=== PATIENT | male | born 1995 | race Caucasian/White ===

== ENCOUNTER 2024-12-06 21:03 | Emergency (ER) | payer SELFPAY ==
[2024-12-06 21:06] VITALS: BP 133/85; PULSE 75; RESP 18; TEMP 36.6; O2SAT 99; BMI 20.8
[2024-12-06 21:08] VITALS: BP 133/85; PULSE 75; RESP 18; TEMP 36.6; O2SAT 99
--- NOTE | 2024-12-06 22:29 | EDS_ITS ---
HPI History of Present Illness Chief Complaint: Cellulitis Informant: patient Onset/Context/Timing Onset: Month(s) Context: Gradual Onset Timing: Continuous Current Severity: Mild Maximum Severity: Mild Narrative Narrative: Healthy 29-year-old male left great ingrown toenail for 2 months. No other complaints. He has been trying take care of at home but progressively getting worse. Prior similar symptoms: No Recent Illness/Hospitalization: No PFSH PFSH Medical History no medical history no medical history Home Medications ?Medication ?Instructions ?Recorded ?Last Taken ?Type cephalexin 500 mg capsule 500 mg PO Q8H 5 days #15 cap s 12/06/24 Unknown Rx Allergy/AdvReac Type Severity Reaction Status Date / Time No Known Allergies Allergy Verified 12/06/24 21:05 Surgical History no surgical history no surgical history Social History Smoking Status: Current every day smoker tobacco type: e-cigarettes ROS ROS ED ROS Narrative Denies recent illness other than redness and swelling and pain to his left great toe Constitutional Constitutional ED: Denies chills or fever(s) Eyes Eyes: Denies blurry vision ENT ENT ED: Denies ear pain Cardiovascular Cardiovascular: Denies chest pain Respiratory/Chest Respiratory/Chest: Denies cough Gastrointestinal Gastrointestinal: Denies abdominal pain Genitourinary Genitourinary ED: Denies dysuria Musculoskeletal Musculoskeletal: Denies arthralgias Integumentary Denies abscess Neurologic Neurologic: Denies headache(s) Psychiatric Psychiatric: Denies anxiety Endocrine Endocrinology: Denies cold intolerance Hematologic/Lymphatic Hematologic/Lymphatic: Reports none Allergic/Immunologic Allergic/Immunologic ED: Denies mouth swelling, tongue swelling or urticaria EXAM Physical Exam Narrative Exam Narrative: 29-year-old male sitting upright in bed vital signs stable afebrile. No acute distress. HEENT exam normal. Lungs clear. Heart regular rhythm no murmur. Abdomen soft. Moving all 4 extremities. Neurovascular intact. Left great toenail lateral side is ingrown red, swollen and tender. No pus. No abscess. No lymphangitic streaking. No inguinal lymphadenopathy. Foot neurovascularly intact. Const Vital Signs: 12/06/24 21:06 12/06/24 21:08 Temperature 97.9 F 97.9 F Temperature Source Oral Oral Pulse Rate 75 75 Respiratory Rate 18 18 Blood Pressure 133/85 H 133/85 H Blood Pressure Mean 101 101 Pulse Ox 99 99 Oxygen Delivery Method Room Air Room Air Positive well nourished and well developed; Negative for cachectic, contractures or unkempt General Appearance ED: well developed and NAD; Negative for unkempt, cachectic, contractures, cyanotic, diaphoretic or pallor Nutritional Appearance: Negative for cachectic HEENT Reports moist mucous membranes Eyes PERRL and EOMs intact bilaterally Neck no lymphadenopathy, supple and no JVD Chest Wall inspection of chest normal and palpation of chest normal Resp normal respiratory effort and clear to auscultation bilaterally Cardio regular rate, regular rhythm, S1 normal heart sound, S2 normal heart sound and no murmurs GI normal to inspection, nondistended, normoactive bowel sounds, non-tender, non- distended and no masses Palpation: soft; Negative for tender or guarding Back/Spine no CVA tenderness Extremity normal to inspection Extremity Narrative: Except left great toenail lateral side ingrown. Tender, red and swollen. No lymphangitic streaking. No abscess. No pus. Consistent with ingrown nail. Neuro oriented x3, CN's II-XII intact bilaterally and no sensory deficits noted Psych mental status grossly normal Appearance: Negative for unkempt Skin no rashes or lesions noted, no wounds and skin turgor normal General Skin Exam: elasticity normal; Negative for jaundice or pallor MDM MDM MDM Narrative Medical decision making narrative: 29-year-old male has an ingrown left great toenail. We discussed treatment plan. Area was locally anesthetized with digital block. I will undermine the nail and remove the lateral third. He will be given a Keflex start Keflex for several days due to the soft tissue infection. History & Record Review Discussion w/independent historian: Patient Additional record(s) reviewed:: No prior records Procedures Other Procedures Procedure(s): Ingrown left great toenail partial resection. Area was cleaned using Shur-Clens. Washed with saline. I used Freezone spray to help get local anesthetic. Then locally anesthetized the area with a digital great toe block using lidocaine. Patient was very nervous we discussed the procedure he was able to calm himself and we removed the lateral third of the nail he tolerated it well. He was instructed on wound care and outpatient follow-up as needed. Discharge Plan Triage Chief Complaint: Cellulitis ED Provider: Geovanny Raphael Dx/Rx/DC Orders Clinical Impression: Ingrown toenail of left foot with infection Instructions: ED Ingrown Toenail, Excised Prescriptions: New cephalexin 500 mg capsule 500 mg PO Q8H 5 Days Qty: 15 0RF Primary Care Provider: Lory Nicole Referrals: Vladislav Prescott DPM [Med Staff - Active Staff] - 1 Week if not improving Activity Restrictions/Additional Instructions: Motrin Tylenol for pain. Return if worse or follow-up with podiatry. The antibiotic 1 pill 3 times a day for 5 days. This should progressively get better if not follow-up with the fire range technician. Print Language: Egyptian Disposition Disposition: Home, Self Care
[2024-12-06] MEDS: Lidocaine 1% (20 ml mdv) 20 ML Vial 10 ML INFILT (22:38)
[2024-12-06 23:59] VITALS: BP 128/84; PULSE 81; RESP 18; TEMP 36.6; O2SAT 99
== END 2024-12-07 00:01 | disposition home or self-care (01) ==
PROVIDERS: Emergency Provider Emergency Medicine; PCP Nurse Practitioner Family; Visit Provider Emergency Medicine
DX: L60.0 Ingrowing nail (principal); L08.9 Local infection of the skin and subcutaneous tissue, unspecified; F17.290 Nicotine dependence, other tobacco product, uncomplicated
CPT/HCPCS: 11765; 99282